=== PATIENT | female | born 1950 | race Caucasian/White ===

== ENCOUNTER → 2018-12-27 | Outpatient (CLI) | payer MEDICARE | END | disposition home or self-care (01) | LOC: RAD 09:47 | DX: M53.82 Other specified dorsopathies, cervical region (principal); R42 Dizziness and giddiness ==

== ENCOUNTER → 2021-10-13 | Day surgery (SDC) | payer MEDICARE ==
[~2021-10-13] VITALS: Ht 162.5 cm; Wt 93.4 kg
[2021-10-13] VITALS (8 sets, daily range): BP systolic 101–134; BP diastolic 55–73
[~2021-10-13] MED LIST: DAILY VALUE1 EACH PO; IBU800 M2 PO; LASIX20 MG PO; LISINOPRIL20 MG PO; XANAX0.25 MG PO
== END | disposition home or self-care (01) ==
LOC: SDC 10-10 08:45
PROVIDERS: ATTEND Surgery
DX: L72.11 Pilar cyst (principal); L82.0 Inflamed seborrheic keratosis; I10 Essential (primary) hypertension; Z90.710 Acquired absence of both cervix and uterus